=== PATIENT | male | born 1955 | race African-American/Black ===

== ENCOUNTER 2025-02-28 16:46 | Emergency (ER) | payer MEDICARE, MEDICAID ==
[~2025-02-28] VITALS: Ht 175.3 cm; Wt 78.0 kg
[2025-02-28 16:48] VITALS: O2SAT 100
[2025-02-28 17:00] VITALS: TEMP 36.6
[2025-02-28] MEDS: KETOROLAC 15MG/ML VIAL IV ONE (17:29)
[2025-02-28] MEDS: ONDANSETRON HCL 4MG/2ML INJ IV ONE (17:29)
[2025-02-28 17:30] LABS: BASOPHILS % 0.4 % (0.0-2.0); EOSINOPHILS % 0.7 % (0.0-5.0); HEMATOCRIT. 39.1 % (42.0-52.0); HEMOGLOBIN. 12.8 g/dL (14.0-18.0); LYMPHOCYTES % 15.5 % (20.0-50.0); MEAN PLATELET VOLUME 7.9 fl (7.4-10.4); MONOCYTES % 7.6 % (2.0-8.0); NEUTROPHILS % 75.8 % (40.0-76.0); PLATELET 313 x1000/uL (130-400); RED BLOOD CELL COUNT 4.85 mill/uL (4.7-6.1); RED CELL DISTRIBUTION WIDTH 14.9 % (11.6-14.6)
[2025-02-28 17:42] LABS: INR 1.1
[2025-02-28 17:47] LABS: CREATININE 1.1 mg/dL (0.6-1.3)
[2025-02-28 17:48] LABS: UREA NITROGEN BLOOD 16 mg/dL (9-23)
[2025-02-28 17:49] LABS: ASPARTATE AMINOTRANSFERASE 18 IU/L (<34)
[2025-02-28 17:50] LABS: BILIRUBIN DIRECT 0.2 mg/dL (<=3.0); BILIRUBIN TOTAL 0.5 mg/dL (0.1-1.0); PROTEIN TOTAL 7.0 g/dL (6.0-8.3)
[2025-02-28 19:51] VITALS: BP 162/98; PULSE 73; RESP 18; O2SAT 98
[2025-02-28 19:56] LABS: CLARITY URINE CLEAR (CLEAR); COLOR URINE YELLOW (YELLOW); GLUCOSE URINE NEGATIVE (NEGATIVE); KETONES URINE NEGATIVE (NEGATIVE); LEUKOCYTE ESTERASE URINE NEGATIVE (NEGATIVE); NITRITE URINE NEGATIVE (NEGATIVE); OCCULT BLOOD URINE NEGATIVE (NEGATIVE); PH URINE 8.5 (4.5-8.0); PROTEIN URINE NEGATIVE (NEGATIVE); SPECIFIC GRAVITY URINE 1.009 (1.005-1.030); UROBILINOGEN URINE 0.2 E.U./dL (0.2-1.0)
[2025-02-28] MEDS ORDERED: TAMS-54 MT (20:04)
[2025-02-28] MEDS ORDERED: IBUP-1455 MT (20:04)
== END 2025-02-28 20:30 | disposition home or self-care (01) ==
LOC: ER 16:46 → CMPBEDREQ 03-01 09:02
DX: R10.31 Right lower quadrant pain (principal); N20.0 Calculus of kidney; I10 Essential (primary) hypertension; E11.9 Type 2 diabetes mellitus without complications; Z79.899 Other long term (current) drug therapy
CPT/HCPCS: 99285; 74176; 96374; 96375; 80076; 80048; 81003; 83690; 85025; 85610; 85730; 36415; J1885; J2405